=== PATIENT | female | born 1970 | race Caucasian/White ===

== ENCOUNTER 2019-12-06 03:27 | Emergency (ER) | payer OTHER, SELFPAY ==
--- NOTE | ~2019-12-06 | CT_ITS ---
EXAMINATION: CT abdomen pelvis wo con DATE: 12/06/2019 05:26 INDICATION: Left flank pain TECHNIQUE: Computed tomography (CT) of the abdomen and pelvis was performed without intravenous contr ast. Automated exposure control and iterative reconstruction technique were employed. The dose-length product was 1198.15 mGy-cm. COMPARISON: 01/21/2017 FINDINGS: Minimal dependent atelectasis in the lower lobes. Heart size is normal. No pericardial or pleural eff usion. Decreased density of the blood pool relative to the myocardium consistent with anemia. Postope rative change of prior gastric bypass procedure. Gradient of increasing density in the gallbladder co nsistent with layering sludge. Liver, spleen, pancreas and right adrenal gland are normal. Minimal ch janeth in a 1.8 cm low-attenuation left adrenal adenoma. There are 3 small stones in the left kidney an d larger 5 mm at least partially obstructing stone in the proximal left ureter with minimal left hydr onephrosis and mild periureteral stranding. Right kidney and ureter are normal with no hydronephrosis or right-sided urolithiasis. Appendix is normal. No bowel obstruction. Unchanged moderate sized fat- containing bladder is normal. The uterus is not identified and has likely been surgically resected. N o free intraperitoneal gas or fluid. Umbilical hernia. L5 spondylolysis with bilateral pars interarti cularis defects, 6 mm anterolisthesis on S1 and moderate to severe associated disc space loss at L5-S 1. IMPRESSION: 1. Left nephrolithiasis with at least partially obstructing 5 mm stone at the proximal left ureter. 2. Moderate-sized fat-containing umbilical hernia. 3. L5 spondylolysis. Reviewed, dictated and finalized at location A. IMPRESSION: 1. Left nephrolithiasis with at least partially obstructing 5 mm stone at the p roximal left ureter. 2. Moderate-sized fat-containing umbilical hernia. 3. L5 spondylolysis.
[2019-12-06 03:40] VITALS: BP 166/87; PULSE 68; RESP 18; TEMP 36.9; O2SAT 100
[2019-12-06 03:48] LABS: Add Urine Microscopic? YES; Appearance Urine Sl Cloudy (Clear); Bilirubin Urine Negative (Negative); Blood Urine 3+ (Negative); Color Urine Yellow (Yellow); Glucose Urine UA Negative (Negative); Ketones Urine Negative (Negative); Leukocyte Esterase Ur 1+ LEU/UL (Negative); Nitrate Urine Negative (Negative); Protein Urine Negative (Negative); Specific Grav Ur >= 1.030 (1.010-1.020); Urobilinogen Urine 0.2 mg/dL (0.2-1.0)
[2019-12-06 03:56] LABS: Bacteria Urine 1+ /hpf; Budding Yeast Urine Present /hpf; Squamous Epithelial Cell Urine Few /hpf (Few)
--- NOTE | 2019-12-06 03:59 | PC.NURSE ---
pt ambulated to bathroom , rate pain 10. fan in room per request
--- NOTE | 2019-12-06 04:02 | ED.BACK ---
HPI - Back Pain/Injury General Chief Complaint: Urogenital-Female Stated Complaint: Left Side Pain Time Seen by Provider: 12/06/19 04:03 Source: patient Mode of arrival: ambulatory Limitations: no limitations History of Present Illness HPI Narrative: 49-year-old woman comes in today complaining of left flank pain that has gotten worse over last day or so. She denies prior similar symptoms. She denies nausea, vomiting, diarrhea, fever, hematuria or dysuria. MD elicited complaint: back pain Onset (ago): day(s) (1) Severity: severe Similar Symptoms Previously: No Quality: sharp Location: left flank Radiation: none Exacerbating factors: none Relieving factors: none Related Data Allergies Allergy/AdvReac Type Severity Reaction Status Date / Time No Known Allergies Allergy Verified 03/01/19 15:10 Review of Systems Constitutional: Constitutional: Denies chills and Denies fever(s) ENT: Denies dysphagia, Denies nasal congestion and Denies sore throat Cardiovascular: Cardiovascular: Denies chest pain and Denies radiating jaw, neck or arm pain Respiratory: Respiratory: Denies cough, Denies dyspnea and Denies wheezing Gastrointestinal: Gastrointestinal: Denies abdominal pain, Denies diarrhea and Denies vomiting Genitourinary: Genitourinary: Denies hematuria, Denies nocturia and Denies dysuria Integumentary/Breasts: Skin/Breast: Denies pruritus, Denies erythema and Denies rash Neurologic: Denies vertigo, Denies dizziness, Denies syncope, Denies focal weakness and Denies numbness Hematologic/Lymphatic: Hematologic/Lymphatic: Denies easy bleeding and Denies easy bruising Allergic/Immunologic: Allergic/Immunologic: Denies lip swelling and Denies throat swelling PMF Past Medical History Medical History (Updated 12/06/19 @ 06:09 by Poncho Skinner MD) Condyloma Dyspareunia H/O reduction of nasal fracture age 14 Surgical History Surgical History (Updated 12/06/19 @ 05:05 by Poncho Skinner MD) H/O gastric bypass July 2017 History of dilation and curettage 1998, 2000 History of hysterectomy with left salpingo-oophorectomy History of right salpingo-oophorectomy Social History Social History Smoking status: Never smoker Alcohol intake: never Substance use: never Living arrangements: with family Gender identity (if verbalized by the patient): Female Exam Const: General: alert Nutritional Appearance: obese Orientation/consciousness: patient oriented x3 Limitations: no limitations Other: Moderate to severe acute distress. HENMT: Mouth: Yes moist mucous membranes Throat: posterior oropharynx normal Eyes: Conjunctivae: conjunctivae normal Pupils: Equal, round and reactive pupils present EOM: EOMs intact bilaterally Resp: Effort & Inspection: normal respiratory effort and not labored Auscultation: clear to auscultation bilaterally, no rales, no rhonchi and no wheezes Cardio: Rate: regular rate Rhythm: regular rhythm Heart sounds: no murmurs GI: Auscultation: normal bowel sounds Other: Nontender, nondistended. Left flank tenderness. Back/Spine/Pelvis: Back: CVA tenderness (mild) Skin: General skin exam: normal color, no jaundice and no pallor Rashes: no rashes Neuro: General: patient oriented x3, moves all extremities, no meningeal signs, no focal motor deficits and CN's II-XI intact bilaterally Speech: normal speech Extrem: General: normal to inspection and no clubbing, cyanosis or edema Psych: Appearance: grossly normal and well kempt Mental Status: mental status grossly normal Affect: Anxious affect present Attitude: cooperative Thought content: Yes Normal thought content present Course Vital Signs Vital signs: Vital Signs Temperature 36.9 C 12/06/19 03:40 Pulse Rate 68 12/06/19 03:40 Respiratory Rate 18 12/06/19 03:40 Blood Pressure 166/87 H 12/06/19 03:40 Pulse Oximetry 100 12/05
[2019-12-06] MEDS: HYDROmorphone HCL 2 MG/ML VIAL 0.5 MG IV PUSH (04:13)
[2019-12-06] MEDS: ONDANSETRON INJ 4 MG/2 ML VIAL IV PUSH (04:30)
[2019-12-06] MEDS: SODIUM CHLORIDE 0.9% IV 500 ML 999 ML IV CONT (04:30)
[2019-12-06 04:34] LABS: Hematocrit 29.1 % (35.0-49.0); Hemoglobin 8.4 g/dL (12.0-15.0); Mean Corpuscular HGB Conc 28.9 g/dL (32.0-36.0); Mean Corpuscular Hemoglobin 20.4 pg (27.0-31.0); Mean Corpuscular Volume 70.8 fL (78.0-102.0); Mean Platelet Volume 9.1 fl (9.2-11.8); Platelet Count Result 298 K/mm3 (150-420); Red Blood Count 4.11 M/mm3 (4.20-5.40); Red Cell Distribution Width 17.6 % (11.6-14.4); White Blood Count 12.6 K/mm3 (4.8-10.8)
[2019-12-06 04:46] LABS: Partial Thromboplastin Time 23.8 SEC (22.3-31.6)
[2019-12-06 04:49] LABS: Alanine Aminotransferase 24 U/L (14-59); Albumin Level 3.2 g/dL (3.4-5.0); Alkaline Phosphatase 84 U/L (46-116); Anion Gap 10 mmol/L (8-16); Aspartate Amino Transferase 23 U/L (15-37); Bilirubin,Total 0.3 mg/dL (0.00-1.00); Blood Urea Nitrogen 12 mg/dL (7-18); Calcium 8.4 mg/dL (8.5-10.1); Carbon Dioxide 26 mmol/L (21-32); Chloride 106 mmol/L (98-108); Estimated CRCL calculation 74 ml/min; Estimated Glomerular Filt Rate > 60; Glucose 109 mg/dL (70-99); Lipase 124 U/L (73-393); Osmolality Calculated 294 mOsm/kg (285-295); Potassium 3.1 mmol/L (3.5-5.1); Sodium 142 mmol/L (136-145); Total Protein 6.7 g/dL (6.4-8.2)
[2019-12-06 04:56] LABS: Band Neutrophils Percent 0 % (0-6); Basophils Percent Manual 0 % (0-1); Eosinophils Absolute Manual 0.25 K/mm3 (0.02-0.5); Eosinophils Percent Manual 2 % (1-6); Lymphocytes Absolute Manual 3.27 K/mm3 (1.1-4.5); Lymphocytes Percent Manual 26 % (18-44); Monocytes Absolute Manual 0.25 K/mm3 (0.1-0.90); Monocytes Percent Manual 2 % (3-9); Neutrophils Absolute Manual 8.82 K/mm3 (1.7-7.2); Neutrophils Percent Manual 70 % (46-73); Platelet Estimate Adequate (Adequate)
[2019-12-06 04:57] LABS: Smudge Cells PRESENT
[2019-12-06 05:58] VITALS: BP 132/76; PULSE 60; RESP 16; O2SAT 99
== END 2019-12-06 06:25 | disposition home or self-care (01) ==
PROVIDERS: Emergency Provider Emergency Medicine; PCP Family Medicine
DX: E87.6 Hypokalemia (principal); N20.1 Calculus of ureter
CPT/HCPCS: 36415; 74176; 80053; 81001; 83605; 83690; 85025; 85610; 85730; 87040; 87086; 87088; 96361; 96374; 96375; 99284; J1170; J1885; J2405; J7040

== ENCOUNTER 2019-12-13 19:25 | Observation (INO) | payer OTHER, SELFPAY ==
--- NOTE | ~2019-12-13 | XR_ITS ---
EXAMINATION: XR abdomen/kub 1V DATE: 12/13/2019 20:11 INDICATION: Lower left-sided flank pain. TECHNIQUE: A supine view of the abdomen on 2 radiographs was obtained. COMPARISON: CT dated 12/06/2019 FINDINGS: 4 x 3 mm stone at the left ureterovesicular junction. Suture lines in the epigastric region and left abdomen consistent with gastric bypass procedure. No dilated loops of gas-filled bowel to suggest obs truction. Mild lumbar dextroscoliosis. Osteitis pubis. IMPRESSION: 1. 4 x 3 mm stone at the left ureterovesicular junction. Reviewed, dictated and finalized at location A.
--- NOTE | ~2019-12-13 | XR_ITS ---
EXAMINATION: XR retrograde pyelo w/stent LT EXAM DATE: 12/14/2019 10:08 INDICATION: Left proximal ureteral stone. TECHNIQUE: Fluoroscopy used during XR retrograde pyelo w/stent LT performed by Dr. Dario estrada MD. The DAP for this procedure was 0.10 mGym2. FINDINGS: Difficult to identify the left proximal ureteral 5 mm stone. Left ureter was cannulated, i njected. Only minimal hydronephrosis. A left-sided double-J ureteral stent was placed. Correlate wit h procedure note. IMPRESSION: Fluoroscopy used during XR retrograde pyelo w/stent LT. Reviewed, dictated and finalized at location B.
[2019-12-13 19:27] VITALS: BP 151/70; PULSE 64; RESP 14; TEMP 36.5; O2SAT 100
[2019-12-13 19:52] LABS: Basophils Absolute Auto 0.1 K/mm3 (0.0-0.1); Basophils Percent Auto 0.4 % (0.2-1.2); Eosinophils Absolute Auto 0.2 K/mm3 (0-0.3); Eosinophils Percent Auto 1.2 % (0-4.4); Hematocrit 30.8 % (37.0-47.0); Immature Granulocyte Absolute 0.04 K/mm3 (0.00-0.031); Immature Granulocyte Percent A 0.2 % (0-0.5); Lymphocytes Absolute Auto 8.84 K/mm3 (0.9-3.2); Lymphocytes Percent Auto 54.1 % (18.3-44.2); Mean Corpuscular HGB Conc 29.2 g/dl (32-36); Mean Corpuscular Hemoglobin 20.4 pg (26-34); Mean Corpuscular Volume 69.7 fl (80-100); Mean Platelet Volume 9.7 fl (7.4-10.4); Monocytes Absolute Auto 0.8 K/mm3 (0.1-0.6); Monocytes Percent Auto 4.7 % (2.6-8.5); Neutrophils Absolute Auto 6.4 K/mm3 (1.3-6.7); Neutrophils Percent Auto 39.4 % (45.5-73.1); Platelet Count Result 365 k/mm3 (150-375); Red Blood Count 4.42 M/mm3 (4.2-5.4); White Blood Count 16.3 K/mm3 (4.5-10.0)
[2019-12-13 19:57] LABS: Add Urine Microscopic? YES; Appearance Urine Clear (Clear); Bilirubin Urine Negative (Negative); Blood Urine Negative (Negative); Color Urine Yellow (Yellow); Glucose Urine UA Negative (Negative); Ketones Urine Negative (Negative); Leukocyte Esterase Ur Trace LEU/UL (Negative); Mucus Urine Rare /lpf; Nitrate Urine Negative (Negative); Protein Urine Negative (Negative); Specific Grav Ur 1.019 (1.001-1.035); Squamous Epithelial Cell Urine Many /hpf (Few); Urobilinogen Urine Negative mg/dL (<2.0)
[2019-12-13] MEDS: MORPHINE SULFATE 4 MG/ML INJ IV PUSH ×2 (20:00→23:44)
[2019-12-13] MEDS: ONDANSETRON INJ 4 MG/2 ML VIAL IV PUSH (20:00)
[2019-12-13] MEDS: SODIUM CHLORIDE 0.9% IV 1,000 ML 999 ML IV CONT ×2 (20:00→21:29)
--- NOTE | 2019-12-13 20:00 | ED.ABDPAIN ---
HPI - Abdominal Pain General Chief Complaint: Urogenital-Female Stated Complaint: kidney stone Time Seen by Provider: 12/13/19 19:44 Source: RN notes reviewed History of Present Illness HPI narrative: Patient presents emergency department from home for left flank pain. Patient was seen at [facility] on 12/06/2019 diagnosed with a 5 mm proximal kidney stone on the left. Patient was discharged with hydrocodone Macrobid and Flomax which she has been taking. States the pain worsened this evening. States she took hydrocodone last 2 hours ago. Associated nausea and vomiting. Denies any fevers or chills chest pain shortness of breath or any other symptoms.. Pain is located left flank and does not radiate described as sharp and stabbing Related Data Allergies Allergy/AdvReac Type Severity Reaction Status Date / Time No Known Allergies Allergy Verified 12/13/19 21:59 Review of Systems Review of Systems: Narrative: Gen.: Denies fevers or chills ENT: Denies congestion Respiratory: Denies shortness of breath or cough CV: Denies chest pain or palpitations GI: See HPI denies burning, urgency, frequency or hematuria Musculoskeletal: Denies back pain or muscle pain Neuro: Denies numbness, tingling, weakness or focal weakness Skin: Denies rash Except as documented, all other systems reviewed and negative FOR[facility]LY [facility] Past Medical History Medical History Condyloma Dyspareunia H/O reduction of nasal fracture age 14 Surgical History Surgical History (Updated 12/06/19 @ 05:05 by Poncho Skinner MD) H/O gastric bypass July 2017 History of dilation and curettage 1998, 2000 History of hysterectomy with left salpingo-oophorectomy History of right salpingo-oophorectomy Social History Social History Smoking status: Never smoker Alcohol intake: never Substance use: never Gender identity (if verbalized by the patient): Female Exam Narrative: Exam Narrative: APPEARANCE: No acute distress, nontoxic, resting in bed EYES: EOMI HEENT: Normocephalic, atraumatic, OMM RESPIRATORY: No respiratory distress Clear to auscultation bilaterally with no rhonchi wheezing or rales. CARDIOVASCULAR: Regular rate and rhythm without murmurs rubs or gallops. ABDOMINAL: Soft, nontender, nondistended, no rebound or guarding MUSCULOSKELETAl: Moves all extremities. No clubbing, cyanosis or edema. NEURO: Awake and alert. Following commands, speech normal, no focal deficits SKIN:: Warm, dry. No rashes lesions or abrasions PSYCHIATRIC: Normal affect/mood, muscling tenderness Course Course Emergency Course: Reviewed old records including CT scans obtained at [facility] on December [address] De La Torre presentation work-up. Agrees with consult. Request patient remain n.p.o. with admission to hospitalist for pain control Discussed Dr. Santiago presentation work-up he agrees admission at this time Discussed with patient and family results of workup and diagnosis. Discussed need for admission. Patient and family understand and agree to current treatment plan Vital Signs Vital signs: Vital Signs Temperature 97.7 F 12/13/19 19:27 Pulse Rate 64 12/13/19 19:27 Respiratory Rate 14 12/13/19 19:27 Blood Pressure 151/70 H 12/13/19 19:27 Pulse Oximetry 100 12/13/19 19:27 Temperature 97.7 F 12/13/19 19:27 Pulse Rate 75 12/13/19 22:38 Respiratory Rate 18 12/13/19 22:38 Blood Pressure 139/71 12/13/19 22:38 Pulse Oximetry 100 12/13/19 22:38 MDM - Abdominal Pain Lab Data Result diagrams: 12/13/19 19:46 12/13/19 19:46 Labs: Lab Results 12/13/19 12/13/19 12/13/19 Range/Units 19:46 19:46 19:46 WBC 16.3 H (4.5-10.0) K/mm3 RBC 4.42 (4.2-5.4) M/mm3 Hgb 9.0 L (12.0-15.0) g/dL Hct 30.8 L (37.0-47.0) % MCV 69.7 L (80-100) fl MCH 20.4 L
[2019-12-13 20:02] LABS: Hypochromasia 1+ (NORMAL); Platelet Estimate Adequate (Adequate)
[2019-12-13 20:04] LABS: Anion Gap 8 mmol/L (8-16); Blood Urea Nitrogen 15 mg/dL (7-17); Calcium 8.9 mg/dL (8.4-10.2); Carbon Dioxide 27 mmol/L (22-30); Chloride 103 mmol/L (98-107); Estimated CRCL calculation 79 ml/min; Estimated Glomerular Filt Rate > 60; Glucose 116 mg/dL (65-105); Potassium 3.7 mmol/L (3.4-5.0); Sodium 138 mmol/L (137-145)
[2019-12-13 21:19] VITALS: BP 154/82; PULSE 69; RESP 18; O2SAT 100
[2019-12-13 21:19] LABS: Lactic Acid Reflex 2.8 mmol/L (0.7-2.1)
--- NOTE | 2019-12-13 21:53 | PC.NURSE ---
pt states pain decreased to a 4 with Dilaudid administration, states pain is back up to an 8. pt milind hughes MD updated on pt status.
[2019-12-13] MEDS: KETOROLAC 30 MG/ML VIAL (*BKC) IV PUSH (21:55)
--- NOTE | 2019-12-13 22:07 | PC.NURSE ---
pt appears more comfortable at this time. pt resting on stretcher in NAD, RR even and unlabored. pt rates pain 4/10.
[2019-12-13 22:38] VITALS: BP 139/71; PULSE 75; RESP 18; O2SAT 100
[2019-12-13 23:26] VITALS: PULSE 84; RESP 16; O2SAT 100
--- NOTE | 2019-12-13 23:35 | ADMGEN ---
This patient, Rachael Nielsen, was admitted to 2 Medical Room 242-. Patient/family oriented to hospital policies and general routines including ID bracelet, bed and alarms, visiting hours, pain management, procedures, bathroom and other care routines, personal items, smoking policy, room service/diet, and visiting hours. Valuables list has been completed. Information on how to activate the Rapid Response Team has been discussed. Patient/Family are encouraged to report perceived risks to care and to ask questions if they do not understand what they are told or what they should do.
[2019-12-13] MEDS: LACTATED RINGERS 1,000 ML 150 ML IV CONT (23:44)
[2019-12-14] VITALS (11 sets, daily range): BP systolic 99–142; BP diastolic 52–76; PULSE 51–68; RESP 10–18; TEMP 36.1–37.1; O2SAT 93–100; BMI 38.7
[2019-12-14 00:03] LABS: Reflex Lactic Acid Yes or No Add Lactic
[2019-12-14 00:56] LABS: Lactic Acid 1.4 mmol/L (0.7-2.1)
[2019-12-14 05:13] LABS: Basophils Percent Auto 0.3 % (0.2-1.2); Eosinophils Percent Auto 0.2 % (0-4.4); Hemoglobin 8.1 g/dL (12.0-15.0); Immature Granulocyte Absolute 0.04 K/mm3 (0.00-0.031); Immature Granulocyte Percent A 0.3 % (0-0.5); Lymphocytes Absolute Auto 5.41 K/mm3 (0.9-3.2); Lymphocytes Percent Auto 40.2 % (18.3-44.2); Mean Corpuscular HGB Conc 28.9 g/dl (32-36); Mean Corpuscular Hemoglobin 20.1 pg (26-34); Mean Corpuscular Volume 69.7 fl (80-100); Mean Platelet Volume 9.8 fl (7.4-10.4); Monocytes Absolute Auto 0.9 K/mm3 (0.1-0.6); Monocytes Percent Auto 6.7 % (2.6-8.5); Neutrophils Absolute Auto 7.1 K/mm3 (1.3-6.7); Neutrophils Percent Auto 52.3 % (45.5-73.1); Platelet Count Result 311 k/mm3 (150-375); Red Blood Count 4.02 M/mm3 (4.2-5.4); White Blood Count 13.5 K/mm3 (4.5-10.0)
[2019-12-14 05:28] LABS: Anion Gap 6 mmol/L (8-16); Blood Urea Nitrogen 11 mg/dL (7-17); Calcium 8.6 mg/dL (8.4-10.2); Carbon Dioxide 27 mmol/L (22-30); Chloride 105 mmol/L (98-107); Estimated CRCL calculation 93 ml/min; Estimated Glomerular Filt Rate > 60; Glucose 100 mg/dL (65-105); Potassium 4.1 mmol/L (3.4-5.0); Sodium 138 mmol/L (137-145)
[2019-12-14 06:13] LABS: Anisocytosis 1+ (NORMAL); Hypochromasia 1+ (NORMAL); Platelet Estimate Adequate (Adequate)
[2019-12-14] MEDS: LACTATED RINGERS 1,000 ML 150 ML IV CONT ×2 (06:16→11:30)
--- NOTE | 2019-12-14 08:17 | PM.SD ---
Same Day Admit/Disch: HPI History of Present Illness Chief complaint: Sepsis, UTI, left kidney stone Narrative: Rachael Nielsen is a 49 year old female with no history of kidney stones who presented to an outside area hospital for extreme left flank pain. The patient stated a week prior she had this pain that was more mild and went to the hospital and received tamsulosin and pain medication and was sent home. She did fine for about a week and then suddenly yesterday she started having sharp 10/10 left flank pain. She said this pain was constantly a 5/10 and would intermittently increased to 9/10. She did not have any dysuria or blood in her urine that she noticed. She had some nausea that was associated with the pain but no vomiting. She denies fevers, chills, chest pain, shortness of breath, COVID-19 like symptoms, leg swelling, vomiting, diarrhea, constipation, rashes or wounds. She has never had any severe reaction to anesthesia. Her pain currently is a 2/10 and she has not passed the stone that she has noted. She is on estrogen due to having a bilateral oophorectomy. No history of blood clots. She takes no supplements after having her gastric bypass. [facility] Past Medical History Medical History Condyloma Dyspareunia H/O reduction of nasal fracture age 14 Surgical History Surgical History H/O gastric bypass July 2017 History of dilation and curettage 1998, 2000 History of hysterectomy with left salpingo-oophorectomy History of right salpingo-oophorectomy Family History Family History Father Prostate carcinoma Mother Uterine cancer Social History Social History Social History: Patient drinks 1 alcoholic beverage a month. She has never smoked marijuana, cigarettes, and does not do drugs. 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 If she is unable to make decisions for herself she appoints her father Desmond Chapman to do so for her. Smoking status: Never smoker Alcohol intake: current Substance use: never Substance use type: does not use Gender identity (if verbalized by the patient): Female Spiritual care concerns: No Same Day Admit/Disch: Med Pre-admit Medications Home Medications Medication Instructions Recorded Confirmed Type hydrocodone-acetaminophen [[place]] 1 tablet PO Q6H PRN #20 tablet 12/06/19 12/14/19 Rx ondansetron 4 mg PO Q6H PRN #10 tablet 12/06/19 12/14/19 Rx estradiol 0.05 mg TRANSDERMAL WEEKLY 12/14/19 12/14/19 History ferrous sulfate 324 mg PO DAILY #30 tablet 12/14/19 Rx mecobalamin (vitamin B12) 1,000 mcg SUBLINGUAL DAILY #30 12/14/19 Rx tablet oxybutynin chloride 5 mg PO BID PRN #30 tablet 12/14/19 Rx sulfamethoxazole-trimethoprim 1 tablet PO Q12H #10 tablet 12/14/19 Rx [Bactrim DS] Exam Narrative: Exam Narrative: General:Well developed well nourished patient HEENT: Normocephalic, atraumatic, PERRL, Sclerae anicteric, oral mucosa moist. Neck: Supple Resp: CTA Heart: RRR with no murmurs Abd: Soft, nontender. No pain to palpation. Positive bowel sounds. No flank or umbilical ecchymosis Back: Flank pain to the left back Skin: Warm and dry Extremities: No swelling, erythema or pain to palpation Neuro: Alert and Oriented x4 . CN 2-12 intact. No focal neurological deficits. DS: Data Data Completed and Pending Labs on day of discharge: Labs from last 24 hours 12/14/19 12/14/19 12/14/19 04:51 04:50 00:36 WBC 13.5 H RBC 4.02 L Hgb 8.1 L Hct 28.0 L MCV 69.7 L MCH 20.1 L MCHC 28.9 L RDW 18.0 H Plt Count 311 MPV 9.8 Immature Gran % (Auto) 0.3 Neut % (Auto) 52.3 Lymph % (Auto) 40.2 [place] % (Auto) 6.7 Eos % (Auto) 0.2 Baso % (Auto) 0.3 Lymph # (Auto) 5.41 H [place] # (Auto)
--- NOTE | 2019-12-14 08:35 | PC.NURSE ---
To OR via stretcher with OR staff. Report to Nubia Gottlieb RN. Consent to be obtained in preop area.
--- NOTE | 2019-12-14 08:40 | WPDURCON ---
Assessment and Plan Assessment and plan (1) Ureteral calculus, left: Code(s): N20.1 - Calculus of ureter Status: Acute Assessment and Plan: Plan to go to the OR this morning: Cystoscopy, left ureteroscopy with stone extraction, possible left ureteral stent, retrograde pyelogram, possible holmium laser. Obtain consent. Keep NPO Urology Consult Note HPI Date Seen: 12/14/19 Requesting Physician: Elizabeth Larkin PA-C Primary Care Provider: Tenzin Blair DO Consult Narrative Narrative: Rachael Nielsen is a 49 year old female who presented to [facility] on 12/06/2019 for left flank pain and was diagnosed with a 5mm left UPJ stone via CT scan abdomen/pelvis. She was discharged home with pain medications and attempted to pass the stone, however last night she had acute onset of worsening left flank pain that was unbearable. She denies radiating pain to the abdomen, dysuria, hematuria, fever, chills, nausea or vomiting. Her WBC is slightly elevated today at 13.5, creatinine is 0.70 and KUB shows movement to the left UVJ. She continues to be in pain today. Review of Systems Cardiovascular: Cardiovascular: Reports no additional cardiovascular complaints Respiratory: Respiratory: Reports no additional respiratory complaints Gastrointestinal: Gastrointestinal: Denies abdominal pain, Denies nausea and Denies vomiting Genitourinary: Genitourinary: Denies hematuria, Denies dysuria, Denies pelvic pain, Reports flank pain and Denies urinary urgency PMFSH Past Medical History Medical History Condyloma Dyspareunia H/O reduction of nasal fracture age 14 Surgical History Surgical History H/O gastric bypass July 2017 History of dilation and curettage 1998, 2000 History of hysterectomy with left salpingo-oophorectomy History of right salpingo-oophorectomy Family History Family History Father Prostate carcinoma Mother Uterine cancer Social History Social History (Updated 12/14/19 @ 08:24 by Elizabeth Larkin PA-C) Social History: Patient drinks 1 alcoholic beverage a month. She has never smoked marijuana, cigarettes, and does not do drugs. 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 If she is unable to make decisions for herself she appoints her father Desmond Chapman to do so for her. Smoking status: Never smoker Alcohol intake: current Substance use: never Substance use type: does not use Gender identity (if verbalized by the patient): Female Spiritual care concerns: No Meds Home Medications and Allergies Home Medications Medication Instructions Recorded Confirmed Type hydrocodone-acetaminophen [[place]] 1 tablet PO Q6H PRN #20 tablet 12/06/19 12/14/19 Rx nitrofurantoin monohyd/m-cryst 100 mg PO Q12H 7 Days #14 cap 12/06/19 12/14/19 Rx [Macrobid] ondansetron 4 mg PO Q6H PRN #10 tablet 12/06/19 12/14/19 Rx tamsulosin 0.4 mg PO HS #10 cap 12/06/19 12/14/19 Rx estradiol 0.05 mg TRANSDERMAL WEEKLY 12/14/19 12/14/19 History Allergies Allergy/AdvReac Type Severity Reaction Status Date / Time No Known Allergies Allergy Verified 12/13/19 21:59 Vital Signs Vital Signs - 24 hr 12/13/19 19:27 12/13/19 21:19 12/13/19 22:38 Temperature 97.7 F Pulse Rate 64 69 75 Respiratory Rate 14 18 18 Blood Pressure 151/70 H 154/82 H 139/71 Pulse Oximetry 100 100 100 12/13/19 23:26 12/14/19 00:08 12/14/19 05:08 Temperature 97.2 F L 97.4 F L Pulse Rate 84 68 59 L Respiratory Rate 16 16 16 Blood Pressure 142/76 H 134/64 Pulse Oximetry 100 100 98 Exam Resp: Effort & Inspection: normal respiratory effort Cardio: Rate: regular rate GI: GI Palp: Yes Soft to palpation and No Tenderness to palpation present (GI) : General: Yes CVA tenderness on the left Extrem: General: no edema Results Lab
[2019-12-14] MEDS: LACTATED RINGERS 1,000 ML 30 ML IV CONT (09:00)
--- NOTE | 2019-12-14 09:09 | WPDANESEPPF ---
Anes - Initial Pre Proc Eval Procedure: Operation Date: 12/14/19 09:30 Proposed Procedures p CYSTOSCOPY,LEFT URETEROSCOPY,LEFT RETROGRADE PYELOGRAM,LEFT STONE EXTRACTION,POSSIBLE HOLMIUM LASER,POSSIBLE STENT PLACEMENT - Dario Stallworth MD Date/Time: 12/14/19 09:09 Surgeon: Elizabeth Larkin PA-C Pre Op Diagnosis: Sepsis, UTI, left kidney stone Patient Data Age: 49 Gender: F Height: 5 ft 2 in Weight: 96 kg Last Vital Signs Temp 36.3 C L 12/14/19 05:08 Pulse 59 L 12/14/19 05:08 Resp 16 12/14/19 05:08 BP 134/64 12/14/19 05:08 Pulse Ox 98 12/14/19 05:08 Allergies Allergy/AdvReac Type Severity Reaction Status Date / Time No Known Allergies Allergy Verified 12/13/19 21:59 Home Medications Medication Instructions Recorded Confirmed Type hydrocodone-acetaminophen [[place]] 1 tablet PO Q6H PRN #20 tablet 12/06/19 12/14/19 Rx nitrofurantoin monohyd/m-cryst 100 mg PO Q12H 7 Days #14 cap 12/06/19 12/14/19 Rx [Macrobid] ondansetron 4 mg PO Q6H PRN #10 tablet 12/06/19 12/14/19 Rx tamsulosin 0.4 mg PO HS #10 cap 12/06/19 12/14/19 Rx estradiol 0.05 mg TRANSDERMAL WEEKLY 12/14/19 12/14/19 History Laboratory Tests 12/13/19 12/13/19 12/13/19 19:46 19:46 19:46 WBC 16.3 K/mm3 H K/mm3 (4.5-10.0) RBC 4.42 M/mm3 M/mm3 (4.2-5.4) Hgb 9.0 g/dL L g/dL (12.0-15.0) Hct 30.8 % L % (37.0-47.0) MCV 69.7 fl L fl (80-100) MCH 20.4 pg L pg (26-34) MCHC 29.2 g/dl L g/dl (32-36) RDW 18.0 % H % (11.5-14.5) Plt Count 365 k/mm3 k/mm3 (150-375) MPV 9.7 fl fl (7.4-10.4) Immature Gran % (Auto) 0.2 % % (0-0.5) Neut % (Auto) 39.4 % L % (45.5-73.1) Lymph % (Auto) 54.1 % H % (18.3-44.2) [place] % (Auto) 4.7 % % (2.6-8.5) Eos % (Auto) 1.2 % % (0-4.4) Baso % (Auto) 0.4 % % (0.2-1.2) Lymph # (Auto) 8.84 K/mm3 H K/mm3 (0.9-3.2) [place] # (Auto) 0.8 K/mm3 H K/mm3 (0.1-0.6) Eos # (Auto) 0.2 K/mm3 K/mm3 (0-0.3) Baso # (Auto) 0.1 K/mm3 K/mm3 (0.0-0.1) Abs Immat Gran (auto) 0.04 K/mm3 H K/mm3 (0.00-0.031) Absolute Neuts (auto) 6.4 K/mm3 K/mm3 (1.3-6.7) Absolute Nucleated RBC 0.0 K/mm3 K/mm3 (0.0-0.012) Nucleated RBC % 0.0 % % (0.0-0.2) Platelet Estimate Adequate (Adequate) Hypochromasia 1+ (NORMAL) Anisocytosis Sodium 138 mmol/L mmol/L (137-145) Potassium 3.7 mmol/L mmol/L (3.4-5.0) Chloride 103 mmol/L mmol/L (98-107) Carbon Dioxide 27 mmol/L mmol/L (22-30) Anion Gap 8 mmol/L mmol/L (8-16) BUN 15 mg/dL mg/dL (7-17) Creatinine 0.80 mg/dL mg/dL (0.7-1.0) Estim Creat Clear Calc 79 ml/min ml/min Estimated GFR > 60 (59 - ) Glucose 116 mg/dL H mg/dL (65-105) Lactic Acid Calcium 8.9 mg/dL mg/dL (8.4-10.2) Urine Color Yellow (Yellow) Urine Appearance Clear (Clear) Urine pH 7.0 (5.0-9.0) Ur Specific [place] 1.019 (1.001-1.035) Urine Protein Negative mg/dL mg/dL (Negative) Urine Glucose (UA) Negative mg/dL mg/dL (Negative) Urine Ketones Negative mg/dL mg/dL (Negative) Ur Blood (Man) Negative (Negative) Urine Nitrate Negative (Negative) Urine Bilirubin Negative (Negative) Urine Urobilinogen Negative mg/dL mg/dL (<2.0) Leukocyte Esterase Rfl Trace GERRI/UL H GERRI/UL (Negative) Urine RBC 3-5 /hpf H /hpf (0-2) Urine WBC 7-9 /hpf H /hpf Ur Squamous Epith Cells Many /hpf H /hpf (Few) Hyaline Casts 1-2 /lpf /lpf (None) Urine Mucus Rare /lpf /lpf 12/13/19 12/14/19 12/14/19 20:55 00:36
[2019-12-14] MEDS: SCOPOLAMINE 1.5 MG PATCH TRANSDERM (09:25)
--- NOTE | 2019-12-14 09:43 | SUR.PREOP ---
PT STATES SHE DOES NOT WANT HER CALLED UNTIL SHE IS LEAVING RECOVERY
[2019-12-14] MEDS: KETOROLAC 30 MG/ML VIAL (*BKC) IV PUSH (09:55)
--- NOTE | 2019-12-14 10:02 | P.OP_ITS ---
Procedure Note - Detailed Date of procedure: 12/14/19 Pre-op diagnosis: Sepsis, UTI, left kidney stone Left ureteral calculus 5 mm Post-op diagnosis: same Procedure performed: cystoscopy, left retrograde pyelogram, left ureteroscopy with stone extraction, left ureteral stent placement 4.8 [place] contour Description of procedure: patient is taken to the operative suite correctly identified. Once anesthesia was obtained she was placed in the dorsal lithotomy position and prepped and draped in usual sterile fashion. Twenty-two [place] scope was inserted in the bladder. There is no tumors noted. Left ureteral o rifice was cannulated with a guidewire. The orifice was dilated using an 8/10 dilator. A rigid ureteral scope was then inserted the stone was visualized. Using an escape basket the stone was grasped and retrieved in its entirety. Reinspection of the ureter reveals no residual stones. Pyelogram was then performed to confirm placement of the stent. A 4.8 contour stent was then placed with the proximal end coiled in the renal pelvis and the distal in the bladder. Bladder was drained. 2% viscous lidocaine was inserted urethra. Patient is taken recovery room stable condition. If patient does well postoperatively she can be discharged home with follow-up in a week's time for stent removal. Anesthesia: GLMA Surgeon: Dario Stallworth MD Drains: Yes Packing: No Pathology: yes Complications: No immediate complications Condition: stable Disposition: PACU
--- NOTE | 2019-12-14 11:35 | PC.NURSE ---
Received patient from OR via stretcher with OR staff. Patient settled into room. Denies pain or distress.
[2019-12-14 13:09] LABS: Hematocrit 29.6 % (37.0-47.0); Hemoglobin 8.4 g/dL (12.0-15.0); Mean Corpuscular HGB Conc 28.4 g/dl (32-36); Mean Corpuscular Hemoglobin 19.8 pg (26-34); Mean Corpuscular Volume 69.6 fl (80-100); Mean Platelet Volume 9.6 fl (7.4-10.4); Platelet Count Result 286 k/mm3 (150-375); Red Blood Count 4.25 M/mm3 (4.2-5.4); White Blood Count 12.5 K/mm3 (4.5-10.0)
[2019-12-14 13:25] LABS: Transferrin 317 mg/dL (206-381)
[2019-12-14 13:40] LABS: Iron 27 ug/dL (37-170)
[2019-12-14 13:49] LABS: Percent Iron Saturation 6 % (20-50)
[2019-12-14 14:12] LABS: Thyroid Stimulating Hormone Reflex 0.793 uIU/mL (0.465-4.68)
[2019-12-14] MEDS: OXYBUTYNIN CHLORIDE 5 MG TABLET PO (14:12)
[2019-12-14 14:16] LABS: Ferritin 4.07 ng/mL (6.24-137)
[2019-12-14 14:24] LABS: Folic Acid 9.2 ng/mL (2.76->20)
--- NOTE | 2019-12-17 08:00 | PC.NURSE ---
Urine cx- multiple organisms each <10,000. Commonly found on external and internal genitalia and are considered to be colonizers.
--- NOTE | 2019-12-25 12:27 | PC.NURSE ---
Blood cx are negative.
== END 2019-12-14 16:00 | disposition home or self-care (01) ==
LOC: ANHED 23:07 → ANH2MED 23:09
PROVIDERS: Physician Assistant; Urology; Admitting Provider Internal Medicine; Emergency Provider Emergency Medicine; PCP Family Medicine; Visit Provider Family Medicine
PROC: (CPT 52352; principal; 2019-12-14 09:30)
DX: N20.1 Calculus of ureter (principal); N20.0 Calculus of kidney; N39.0 Urinary tract infection, site not specified; D72.829 Elevated white blood cell count, unspecified; D50.9 Iron deficiency anemia, unspecified; E53.8 Deficiency of other specified B group vitamins; Z98.84 Bariatric surgery status; E66.9 Obesity, unspecified; Z68.38 Body mass index [BMI] 38.0-38.9, adult
CPT/HCPCS: 52356; 36415; 74018; 74420; 80048; 81001; 82365; 82607; 82728; 82746; 83540; 83550; 83605; 84443; 84466; 85025; 85027; 87040; 87086; 87088; 88300; 96360; 96361; 96365; 96367; 96375; 96376; 99285; A9270; C1769; C2617; G0378; J0131; J0696; J1100; J1170; J1885; J2250; J2270; J2405; J2704; J3010; J7030; J7120; Q9966

== ENCOUNTER 2020-03-28 07:47 | Outpatient (CLI) | payer OTHER, SELFPAY ==
[2020-03-29 12:35] LABS: SARS-CoV-2 RNA PCR Negative
== END 2020-03-28 07:48 | disposition home or self-care (01) ==
LOC: CHSLAB 07:51
PROVIDERS: PCP Family Medicine; Visit Provider Nurse Practitioner Family
DX: Z20.828 Contact with and (suspected) exposure to other viral communicable diseases (principal)
CPT/HCPCS: 87635; C9803; U0003

== ENCOUNTER 2023-03-24 08:47 | Outpatient (CLI) | payer BC, SELFPAY ==
[2023-03-24 09:04] LABS: Hematocrit 24.5 % (35.0-49.0); Mean Corpuscular HGB Conc 25.3 g/dL (32.0-36.0); Mean Corpuscular Hemoglobin 15.6 pg (27.0-31.0); Mean Corpuscular Volume 61.6 fL (78.0-102.0); Mean Platelet Volume 9.4 fl (9.2-11.8); Platelet Count Result 326 K/mm3 (150-420); Red Blood Count 3.98 M/mm3 (4.20-5.40); Red Cell Distribution Width 20.4 % (11.6-14.4); White Blood Count 11.7 K/mm3 (4.8-10.8)
[2023-03-24 09:22] LABS: Hemoglobin 6.2 g/dL (12.0-15.0)
[2023-03-24 09:27] LABS: Band Neutrophils Percent 0 % (0-6); Basophils Absolute Manual 0.23 K/mm3 (0-0.1); Basophils Percent Manual 2 % (0-1); Eosinophils Absolute Manual 0.46 K/mm3 (0.02-0.5); Eosinophils Percent Manual 4 % (1-6); Lymphocytes Absolute Manual 3.74 K/mm3 (1.1-4.5); Lymphocytes Percent Manual 32 % (18-44); Monocytes Percent Manual 6 % (3-9); Neutrophils Absolute Manual 6.55 K/mm3 (1.7-7.2); Neutrophils Percent Manual 56 % (46-73); Platelet Estimate Adequate (Adequate); Total Cells Counted 100
[2023-03-24 09:36] LABS: Alanine Aminotransferase 18 U/L (14-59); Albumin Level 3.6 g/dL (3.4-5.0); Alkaline Phosphatase 88 U/L (46-116); Anion Gap 7 mmol/L (8-16); Aspartate Amino Transferase 14 U/L (15-37); Bilirubin,Total 0.3 mg/dL (0.00-1.00); Blood Urea Nitrogen 11 mg/dL (7-18); Calcium 8.4 mg/dL (8.5-10.1); Carbon Dioxide 30 mmol/L (21-32); Chloride 108 mmol/L (98-108); Cholesterol 127 mg/dL (0-200); Estimated Glomerular Filt Rate > 60; Ferritin 3 ng/mL (8-252); Glucose 93 mg/dL (70-99); HDL Direct 65 mg/dL (40-60); Iron 10 ug/dL (50-170); LDL Cholesterol Calculated 51 mg/dL (<130); Osmolality Calculated 299 mOsm/kg (285-295); Percent Iron Saturation 2 % (12-57); Potassium 3.8 mmol/L (3.5-5.1); Sodium 145 mmol/L (136-145); Total Protein 6.4 g/dL (6.4-8.2); Triglycerides 53 mg/dL (0-150)
[2023-03-24 10:24] LABS: Hemoglobin A1C < 4.7 % (<5.7)
== END 2023-03-24 08:48 | disposition home or self-care (01) ==
LOC: CHSLAB 08:49
PROVIDERS: PCP Family Medicine; Visit Provider Family Medicine
DX: K43.9 Ventral hernia without obstruction or gangrene (principal); E11.9 Type 2 diabetes mellitus without complications; D64.9 Anemia, unspecified; D50.9 Iron deficiency anemia, unspecified; D72.829 Elevated white blood cell count, unspecified
CPT/HCPCS: 36415; 80053; 80061; 82728; 83036; 83540; 83550; 85025

== ENCOUNTER 2023-03-24 10:02 | Emergency (ER) | payer BC, SELFPAY ==
[2023-03-24 10:02] VITALS: BP 133/68; PULSE 74; RESP 18; TEMP 36.5; O2SAT 98
--- NOTE | 2023-03-24 10:13 | ECG_ITS ---
Measurements Intervals [place] Rate: 75 P: 57 MO: 161 QRS: -1 QRSD: 110 T: 25 QT: 411 QTc: 459 Interpretive Statements SINUS RHYTHM INCOMPLETE RIGHT BUNDLE BRANCH BLOCK BORDERLINE R WAVE PROGRESSION, ANTERIOR LEADS BASELINE ARTIFACT- I, II, III, V4 BORDERLINE ECG NO PREVIOUS ECG AVAILABLE FOR COMPARISON Electronically Signed On 03-24-2023 10:32:37 LATHE SET UP OPERATOR by Sameer Jolly D.O.
--- NOTE | 2023-03-24 10:25 | ED.RECABL ---
HPI - Recheck/Abnormal Lab/Rx General Chief Complaint: Recheck/Abnormal Lab/Rx Stated Complaint: abnormal labs Time Seen by Provider: 03/24/23 10:13 Source: patient Mode of arrival: ambulatory Limitations: no limitations History of Present Illness HPI narrative: this is a 52-year-old female that presents from her primary physician's office with some blood work that showed that she hemoglobin of 6.2, patient does have a history of iron deficiency anemia and B-cell lymphocytosis is followed by Hematology-Oncology at [facility] and was in the process of getting a iron infusion set up as an outpatient. Patient after seeing her primary that is she establish care with today and having some blood work performed was concerned of a low hemoglobin. The patient is asymptomatic with no shortness for breath no chest pain no bleeding episodes appears comfortable vitals are stable no abdominal pain no nausea vomiting no diarrhea constipation no dysuria. Patient has no fever chills, patient does have a history of gastric bypass surgery. Related Data Allergies Allergy/AdvReac Type Severity Reaction Status Date / Time No Known Allergies Allergy Verified 03/24/23 07:31 Review of Systems Review of Systems: All systems reviewed & are unremarkable except as noted in HPI and below PMFSH Past Medical History Medical History (Updated 03/24/23 @ 11:03 by Denny Castro MD) Condyloma Dyspareunia H/O reduction of nasal fracture age 14 Surgical History Surgical History H/O gastric bypass July 2017 History of dilation and curettage 1998, 2000 History of hysterectomy with left salpingo-oophorectomy History of right salpingo-oophorectomy Family History Family History Father Prostate carcinoma Mother Uterine cancer Social History Social History Social History: Patient drinks 1 alcoholic beverage a month. She has never smoked marijuana, cigarettes, and does not do drugs. 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 If she is unable to make decisions for herself she appoints her father Desmond Chapman to do so for her. Smoking status: Never smoker Alcohol intake: current Substance use: never Substance use type: does not use Living arrangements: with family Gender identity (if verbalized by the patient): Female Spiritual care concerns: No Exam Const: General: healthy appearing Nutritional Appearance: well nourished Orientation/consciousness: patient oriented x3 Limitations: no limitations HENMT: Head: normal to inspection Chest: Chest palpation & inspection: normal inspection of the chest Resp: Effort & Inspection: normal respiratory effort Auscultation: clear to auscultation bilaterally Cardio: Rate: regular rate Rhythm: regular rhythm GI: GI Palp: Yes Soft to palpation Auscultation: normal bowel sounds : General: Yes bladder normal to palpation Back/Spine/Pelvis: Back: no CVA tenderness Skin: General skin exam: normal color Rashes: no rashes Wounds: no wounds Neuro: General: patient oriented x3 and moves all extremities Psych: Mental Status: mental status grossly normal Affect: normal affect Course Course Emergency Course: Patient H&H performed and with some H&H values of 6.2 and 24, patient asymptomatic vitals are stable has a history of iron deficiency and is process of getting iron infusion set up as an outpatient basis. Patient was sent over by her primary for low H&H, IV was started and patient was typed and crossed and will infuse 1unit of packed red blood cells. EKG performed shows incomplete right bundle branch block otherwise no ST or T changes. Vital Signs Vital signs: Vital Signs Temperature 36.5 C 03/24/23 10:02 Pulse Rate 74 03/24/23 10:02 Respiratory Rate 18 03/24/23 10:02 Blood Pressure 133
[2023-03-24 10:27] LABS: Basophils Absolute Auto 0.05 K/mm3 (0.00-0.10); Basophils Percent Auto 0.5 % (0.0-1.0); Eosinophils Absolute Auto 0.12 K/mm3 (0.02-0.50); Eosinophils Percent Auto 1.1 % (1.0-6.0); Hematocrit 25.3 % (35.0-49.0); Immature Granulocyte Absolute 0.03 K/mm3 (0.00-0.00); Immature Granulocyte Percent A 0.3 % (0.0-0.0); Lymphocytes Absolute Auto 5.13 K/mm3 (1.10-4.50); Mean Corpuscular HGB Conc 24.9 g/dL (32.0-36.0); Mean Corpuscular Hemoglobin 15.4 pg (27.0-31.0); Mean Platelet Volume 10.2 fl (9.2-11.8); Monocytes Percent Auto 4.6 % (2.0-11.0); Neutrophils Absolute Auto 5.1 K/mm3 (1.7-7.2); Neutrophils Percent Auto 46.5 % (50.0-70.0); Platelet Count Result 347 K/mm3 (150-420); Red Blood Count 4.08 M/mm3 (4.20-5.40); Red Cell Distribution Width 20.7 % (11.6-14.4); White Blood Count 10.9 K/mm3 (4.8-10.8)
[2023-03-24 10:30] LABS: Hemoglobin 6.3 g/dL (12.0-15.0)
[2023-03-24 10:43] LABS: Alanine Aminotransferase 19 U/L (14-59); Albumin Level 3.5 g/dL (3.4-5.0); Alkaline Phosphatase 87 U/L (46-116); Anion Gap 9 mmol/L (8-16); Aspartate Amino Transferase 14 U/L (15-37); Bilirubin,Total 0.3 mg/dL (0.00-1.00); Blood Urea Nitrogen 11 mg/dL (7-18); Calcium 8.4 mg/dL (8.5-10.1); Carbon Dioxide 29 mmol/L (21-32); Chloride 106 mmol/L (98-108); Estimated CRCL calculation 99 ml/min; Estimated Glomerular Filt Rate > 60; Glucose 128 mg/dL (70-99); Osmolality Calculated 299 mOsm/kg (285-295); Potassium 3.2 mmol/L (3.5-5.1); Sodium 144 mmol/L (136-145); Total Protein 6.7 g/dL (6.4-8.2)
[2023-03-24 10:58] VITALS: BP 123/65; PULSE 75; RESP 20; TEMP 36.7; O2SAT 99
[2023-03-24 11:14] VITALS: BP 118/59; PULSE 61; RESP 20; TEMP 36.7; O2SAT 98
[2023-03-24 12:14] VITALS: BP 120/66; PULSE 70; RESP 20; TEMP 36.7; O2SAT 99
[2023-03-24] MEDS: POTASSIUM BICARBONATE 25 MEQ TABEF 50 MEQ PO (12:29)
[2023-03-24] MEDS: SODIUM CHLORIDE 0.9% IV 500 ML 999 ML IV CONT (12:33)
[2023-03-24 13:00] VITALS: BP 122/70; PULSE 64; RESP 20; TEMP 36.7; O2SAT 97
== END 2023-03-24 13:17 | disposition home or self-care (01) ==
PROVIDERS: Emergency Provider Emergency Medicine; PCP Family Medicine
DX: E87.6 Hypokalemia (principal); D50.9 Iron deficiency anemia, unspecified
CPT/HCPCS: 36415; 36430; 80053; 85025; 86850; 86900; 86901; 86920; 93005; 96360; 99283; A9270; J7040; P9016

== ENCOUNTER 2023-04-04 17:14 | Outpatient (CLI) | payer BC, SELFPAY ==
[2023-04-04] MEDS: IRON SUCROSE COMPLEX 200 MG in SODIUM CHLORIDE 0.9% IV 250 ML 250 MG IVPB (17:32)
--- NOTE | 2023-04-04 17:36 | PC.NURSE ---
Keshia Juarez RN started 22 gauge IV in left wrist. IV medication started without difficulty. Call light and belongings within reach.
--- NOTE | 2023-04-04 18:43 | PC.NURSE ---
IV infusion completed. IV flushed and removed without difficulty. IV line intact. Pressure applied to site then pressure dressing applied. Patient tolerated well. Site care instructed. Patient ambulated to car.
== END 2023-04-04 17:15 | disposition home or self-care (01) ==
PROVIDERS: PCP Family Medicine; Visit Provider Family Medicine
DX: D50.9 Iron deficiency anemia, unspecified (principal)
CPT/HCPCS: 96365; J1756; J7050

== ENCOUNTER 2023-04-07 17:25 | Outpatient (CLI) | payer BC, SELFPAY ==
[2023-04-07] MEDS: IRON SUCROSE COMPLEX 200 MG in SODIUM CHLORIDE 0.9% IV 250 ML 250 MG IVPB (17:46)
[2023-04-07 18:06] VITALS: BP 112/74; PULSE 94; RESP 18; TEMP 36.1; O2SAT 98
== END 2023-04-07 17:26 | disposition home or self-care (01) ==
LOC: CHSTREATRM 17:26
PROVIDERS: PCP Family Medicine; Visit Provider Family Medicine
DX: D50.9 Iron deficiency anemia, unspecified (principal)
CPT/HCPCS: 96365; J1756; J7050

== ENCOUNTER 2023-04-11 17:12 | Outpatient (CLI) | payer BC, SELFPAY ==
[2023-04-11] MEDS: IRON SUCROSE COMPLEX 200 MG in SODIUM CHLORIDE 0.9% IV 250 ML 250 MG IVPB (18:05)
--- NOTE | 2023-04-11 19:12 | PC.NURSE ---
Patient IV infusion completed. Patient tolerated well.IV site discontinued. Instructed on site care. Patient stated understanding. Patient amb to vehicile.
== END 2023-04-11 17:13 | disposition home or self-care (01) ==
LOC: CHSTREATRM 17:13
PROVIDERS: PCP Family Medicine; Visit Provider Family Medicine
DX: D50.9 Iron deficiency anemia, unspecified (principal)
CPT/HCPCS: 96365; J1756; J7050

== ENCOUNTER 2023-04-14 13:45 | Outpatient (CLI) | payer BC, SELFPAY ==
[2023-04-14 14:04] VITALS: BMI 40.7
[2023-04-14 14:17] VITALS: BP 109/53; PULSE 70; RESP 18; TEMP 36.2; O2SAT 97
[2023-04-14] MEDS: IRON SUCROSE COMPLEX 200 MG in SODIUM CHLORIDE 0.9% IV 250 ML 250 MG IVPB (14:31)
--- NOTE | 2023-04-14 16:07 | PC.NURSE ---
Patient infusion completed. IV discontinued and and pressure dressing applied. Patient tolerated well. Nurse explained care of IV site. Patient amb to vehicle,.
== END 2023-04-14 13:46 | disposition home or self-care (01) ==
LOC: CHSTREATRM 13:48
PROVIDERS: PCP Family Medicine; Visit Provider Family Medicine
DX: D50.9 Iron deficiency anemia, unspecified (principal)
CPT/HCPCS: 96365; J1756; J7050

== ENCOUNTER 2023-04-19 17:48 | Outpatient (CLI) | payer BC, SELFPAY ==
[2023-04-19] MEDS: IRON SUCROSE COMPLEX 200 MG in SODIUM CHLORIDE 0.9% IV 250 ML 250 MG IVPB (18:25)
--- NOTE | 2023-04-19 19:05 | PC.NURSE ---
Patient went to ER for IV insertion. 22g IV inserted to right hand. Patient came up to floor and IV infusion started. Patient tolerated well. Call light in reach.
--- NOTE | 2023-04-19 19:32 | PC.NURSE ---
Patient's IV infufion completed. IV D/Cs intact. Patient tolerated well. Patient ambulated to car.
== END 2023-04-19 17:49 | disposition home or self-care (01) ==
LOC: CHSTREATRM 17:50
PROVIDERS: PCP Family Medicine; Visit Provider Family Medicine
DX: D50.9 Iron deficiency anemia, unspecified (principal)
CPT/HCPCS: 96365; J1756; J7050

== ENCOUNTER 2023-04-27 18:12 | Outpatient (CLI) | payer BC, SELFPAY ==
[2023-04-27 18:37] LABS: Basophils Absolute Auto 0.06 K/mm3 (0.00-0.10); Basophils Percent Auto 0.5 % (0.0-1.0); Eosinophils Absolute Auto 0.15 K/mm3 (0.02-0.50); Eosinophils Percent Auto 1.3 % (1.0-6.0); Hematocrit 36.8 % (35.0-49.0); Hemoglobin 10.4 g/dL (12.0-15.0); Immature Granulocyte Absolute 0.02 K/mm3 (0.00-0.00); Immature Granulocyte Percent A 0.2 % (0.0-0.0); Lymphocytes Absolute Auto 6.23 K/mm3 (1.10-4.50); Lymphocytes Percent Auto 55.2 % (18.0-42.0); Mean Corpuscular HGB Conc 28.3 g/dL (32.0-36.0); Mean Corpuscular Hemoglobin 21.4 pg (27.0-31.0); Mean Corpuscular Volume 75.9 fL (78.0-102.0); Mean Platelet Volume 9.3 fl (9.2-11.8); Monocytes Absolute Auto 0.58 K/mm3 (0.10-0.90); Monocytes Percent Auto 5.1 % (2.0-11.0); Neutrophils Absolute Auto 4.2 K/mm3 (1.7-7.2); Neutrophils Percent Auto 37.7 % (50.0-70.0); Platelet Count Result 331 K/mm3 (150-420); Red Blood Count 4.85 M/mm3 (4.20-5.40); White Blood Count 11.3 K/mm3 (4.8-10.8)
[2023-04-27 19:33] LABS: Alanine Aminotransferase 22 U/L (14-59); Albumin Level 3.8 g/dL (3.4-5.0); Alkaline Phosphatase 84 U/L (46-116); Anion Gap 8 mmol/L (8-16); Aspartate Amino Transferase 15 U/L (15-37); Bilirubin,Total 0.3 mg/dL (0.00-1.00); Blood Urea Nitrogen 12 mg/dL (7-18); Carbon Dioxide 30 mmol/L (21-32); Chloride 107 mmol/L (98-108); Estimated Glomerular Filt Rate 47; Ferritin 60 ng/mL (8-252); Glucose 81 mg/dL (70-99); Iron 41 ug/dL (50-170); Osmolality Calculated 298 mOsm/kg (285-295); Percent Iron Saturation 11 % (12-57); Potassium 4.3 mmol/L (3.5-5.1); Sodium 145 mmol/L (136-145); Total Protein 6.5 g/dL (6.4-8.2)
== END 2023-04-27 18:13 | disposition home or self-care (01) ==
LOC: CHSLAB 18:14
PROVIDERS: PCP Family Medicine; Visit Provider Family Medicine
DX: D50.9 Iron deficiency anemia, unspecified (principal); D72.820 Lymphocytosis (symptomatic)
CPT/HCPCS: 36415; 80053; 82728; 83540; 83550; 85025

== ENCOUNTER 2023-04-28 07:29 | Outpatient (CLI) | payer BC, SELFPAY ==
--- NOTE | ~2023-04-28 | MM_ITS ---
EXAMINATION: MM screening baldemar BI w jaz HISTORY: Screening mammogram TECHNIQUE: Craniocaudal and mediolateral oblique 3-D tomosynthesis images were obtained and synthetic 2-D images were generated. CAD analysis was submitted and interpreted. COMPARISON: 04/21/2017 BREAST PARENCHYMAL COMPOSITION: The breasts are almost entirely fatty. FINDINGS: No suspicious mass, calcification, or architectural distortion are identified in either cinda ast to suggest malignancy. There has been no suspicious interval change. IMPRESSION: 1. No mammographic evidence of malignancy. 2. Recommend routine screening mammography in one year. BI-RADS Category 1: Negative Reviewed, dictated and finalized at location A. [facility]
== END 2023-04-28 07:30 | disposition home or self-care (01) ==
LOC: CHSIMG 07:30
PROVIDERS: PCP Family Medicine; Visit Provider Family Medicine
DX: Z12.31 Encounter for screening mammogram for malignant neoplasm of breast (principal)
CPT/HCPCS: 77063; 77067

== ENCOUNTER 2024-02-15 03:30 | Day surgery (SDC) | payer BC, SELFPAY ==
[2024-02-15] VITALS (14 sets, daily range): BP systolic 101–176; BP diastolic 60–87; PULSE 53–74; RESP 14–22; TEMP 36.2–36.8; O2SAT 94–100
--- NOTE | ~2024-02-15 | XR_ITS ---
INTRAOPERATIVE FLUOROSCOPY: CLINICAL HISTORY: 53 years old Female; LEFT SIDE, CYSTO, RETRO, STENT PROCEDURE COMMENTS: Limited intraoperative fluoroscopy of the abdomen and pelvis was performed. CUMULATIVE DOSE: 28.55 mGy FLUOROSCOPY TIME: 59.5 seconds FINDINGS/IMPRESSION: Please refer to operative note for further details. Reviewed, dictated and finalized at location A.
--- NOTE | ~2024-02-15 | CT_ITS ---
EXAMINATION: CT abdomen pelvis w con DATE: 02/15/2024 05:07 INDICATION: Abdominal pain. TECHNIQUE: Computed tomography (CT) of the abdomen and pelvis was performed with 100 mL Omnipaque 350 intravenous contrast. Automated exposure control and iterative reconstruction technique were employe d. The dose-length product was 1284.26 mGy-cm. COMPARISON: CT abdomen and pelvis 12/06/2019 FINDINGS: The visualized portions of the lung bases demonstrate mild atelectasis. Calcified right chris g nodules and calcified right hilar and mediastinal lymph nodes are consistent with old granulomatous disease. No pleural effusion. The heart size is normal. No pericardial effusion. The liver is normal . The gallbladder is distended. The spleen, pancreas, and right adrenal gland are normal. There is a 2.2 cm mass in left adrenal gland that measured low attenuation on the prior noncontrast CT, consiste nt with an adenoma. Right kidney is normal. There is a delayed left-sided contrast nephrogram. There is a 3 mm stone in left kidney. There is mild left hydronephrosis and hydroureter. There is a [address] one in distal left ureter. There are surgical changes of the bowel. There are changes of gastric bypa ss procedure. The appendix is normal. There are no pathologically enlarged lymph nodes. There is phys iologic fluid in the pelvis. There are chronic bilateral L5 pars defects. There is 9 mm anterolisthes is of L5 on S1. IMPRESSION: 1. 9 mm stone in distal left ureter with mild left hydronephrosis and hydroureter. 2. 3 mm nonobstructing left kidney stone. 3. Gallbladder distention, which may be secondary to fasting. Reviewed, dictated and finalized at location A. IMPRESSION: 1. 9 mm stone in distal left ureter with mild left hydronephrosis and hydrouret er. 2. 3 mm nonobstructing left kidney stone. 3. Gallbladder distention, which may be secondary to fasting.
[2024-02-15 03:52] LABS: BEDSIDEPREGUCG Negative (Negative)
[2024-02-15 03:57] LABS: Hematocrit 36.4 % (37.0-47.0); Hemoglobin 11.5 g/dL (12.0-15.0); Mean Corpuscular HGB Conc 31.6 g/dl (32-36); Mean Corpuscular Hemoglobin 27.4 pg (26-34); Mean Corpuscular Volume 86.9 fl (80-100); Mean Platelet Volume 10.5 fl (7.4-10.4); Platelet Count Result 257 k/mm3 (150-375); Red Blood Count 4.19 M/mm3 (4.2-5.4); Red Cell Distribution Width 14.6 % (11.5-14.5); White Blood Count 13.5 K/mm3 (4.5-10.0)
[2024-02-15 04:07] LABS: Add Urine Microscopic? YES; Appearance Urine Clear (Clear); Bacteria Urine None Seen /hpf; Bilirubin Urine Negative (Negative); Blood Urine Negative (Negative); Color Urine Yellow (Yellow); Glucose Urine UA Negative (Negative); Ketones Urine Negative (Negative); Leukocyte Esterase Ur Trace LEU/UL (Negative); Nitrate Urine Negative (Negative); Non Pathogenic Casts 0-2; Protein Urine Trace mg/dL (Negative); RBC Urine 0-2 /hpf (0-2); Specific Grav Ur 1.022 (1.001-1.035); Squamous Epithelial Cell Urine Occasional /hpf (Few); Urobilinogen Urine 0.2 mg/dL (<2.0); pH Urine 5.5 (5.0-9.0)
[2024-02-15 04:09] LABS: Alanine Aminotransferase 22 U/L (6-35); Albumin Level 4.3 g/dL (3.5-5.1); Alkaline Phosphatase 82 U/L (38-126); Anion Gap 9 mmol/L (4-12); Aspartate Amino Transferase 31 U/L (14-36); Bilirubin,Total 0.5 mg/dL (0.2-1.3); Blood Urea Nitrogen 13 mg/dL (7-17); Calcium 9.2 mg/dL (8.4-10.2); Carbon Dioxide 25 mmol/L (22-30); Chloride 106 mmol/L (98-107); Estimated CRCL calculation 105 ml/min; Estimated Glomerular Filt Rate > 60; Glucose 114 mg/dL (65-110); Lipase 73 U/L (23-300); Potassium 2.9 mmol/L (3.4-5.0); Sodium 140 mmol/L (137-145)
[2024-02-15] MEDS: ONDANSETRON INJ 4 MG/2 ML VIAL IV PUSH (04:16)
[2024-02-15] MEDS: POTASSIUM CHLORIDE 20 MEQ ER TABLET 40 MEQ PO (04:16)
[2024-02-15] MEDS: MORPHINE SULFATE (*CRX) 4 MG/ML INJ IV PUSH (04:16)
[2024-02-15 04:23] LABS: Band Neutrophils Percent 1 % (0-6); Eosinophils Absolute Manual 0.27 K/mm3 (0.02-0.50); Eosinophils Percent Manual 2 % (0-4); Lymphocytes Absolute Manual 6.48 K/mm3 (1.1-4.5); Lymphocytes Percent Manual 48 % (18-44); Monocytes Absolute Manual 0.67 K/mm3 (0.1-0.90); Monocytes Percent Manual 5 % (3-9); Neutrophils Absolute Manual 6.07 K/mm3 (1.7-7.2); Neutrophils Percent Manual 44 % (46-73); Platelet Estimate Adequate (Adequate); Total Cells Counted 100
[2024-02-15 04:24] LABS: Large Platelets Present; Ovalocytes 1+; Schistocytes None Seen; Smudge Cells PRESENT
--- NOTE | 2024-02-15 04:34 | PC.NURSE ---
Pt Sa02 77%, pt alert sleepy. Oxygen 2L applied NC Sa02 increased 97%
[2024-02-15] MEDS: KETOROLAC 15 MG/ML VIAL (*BKC) IV PUSH (04:44)
[2024-02-15] MEDS: diphenhydrAMINE HCl INJ 50 MG/ML VIAL 25 MG IV PUSH (04:44)
[2024-02-15] MEDS: METOCLOPRAMIDE HCL INJ 10 MG/2 ML VIAL IV PUSH (04:45)
--- NOTE | 2024-02-15 06:15 | ED_ITS ---
HPI - Abdominal Pain General Chief Complaint: Abdominal Pain Stated Complaint: kidney stone pain Time Seen by Provider: 02/15/24 03:38 History of Present Illness HPI narrative: Patient is a 53-year-old female who presents to the emergency department this morning complaining of severe left-sided flank pain starting approximately 1 hour prior to arrival which woke her up from sleep. Patient states that she has a history of kidney stones and this feels very similar. She is in a lot of distress, and admits that she is also nauseous secondary to the pain. Patient also states that she has been having some urinary urgency which she normally does when she is trying to pass a kidney stone. Denies any fevers or chills at home. Denies any dysuria or hematuria. Denies any constipation, diarrhea, melena or hematochezia. No additional symptoms or concerns at this time. Related Data Home Medications Medication Instructions Recorded Confirmed ergocalciferol (vitamin D2) 1,250 1,250 mcg PO WEEKLY 04/07/23 04/19/23 mcg (50,000 unit) capsule Allergies Allergy/AdvReac Type Severity Reaction Status Date / Time No Known Allergies Allergy Verified 02/15/24 03:50 Review of Systems Review of Systems: All systems are reviewed and are negative unless stated otherwise in the HPI. [facility] Past Medical History Medical History (Updated 02/15/24 @ 06:39 by Max Koch MD) Condyloma Dyspareunia H/O reduction of nasal fracture age 14 Surgical History Surgical History H/O gastric bypass July 2017 History of dilation and curettage 2000 History of hysterectomy with left salpingo-oophorectomy History of right salpingo-oophorectomy Family History Family History Father Prostate carcinoma Mother Uterine cancer Social History Social History Social History: Patient drinks 1 alcoholic beverage a month. She has never smoked marijuana, cigarettes, and does not do drugs. 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 If she is unable to make decisions for herself she appoints her father Desmond Chapman to do so for her. Smoking status: Never smoker Alcohol intake: current Substance use: never Substance use type: does not use Living arrangements: with family Gender identity (if verbalized by the patient): Female Spiritual care concerns: No Exam Narrative: General: Alert, awake, afebrile, in severe distress. HEENT: PERRL, no rhinorrhea, no post nasal drip, oropharynx clear. Cardiovascular: Regular rate and rhythm, no murmurs, rubs or gallops, no peripheral edema. Respiratory: Clear to auscultation bilaterally, no tachypnea, no wheezing, no rhonchi, no rubs, no respiratory distress. Abdomen: Soft, nontender, nondistended, no rebound, no guarding, no peritoneal signs. Musculoskeletal: No joint swelling or deformity, normal muscle tone. Skin: No rashes or petechia, no signs of infection. Neurological: Alert and oriented to person, place, and time. Follows all commands. No focal deficits, speech is clear and fluent. Course Vital Signs Vital signs: Vital Signs Temperature 98.2 F 02/15/24 03:47 Pulse Rate 67 02/15/24 03:47 Respiratory Rate 14 02/15/24 03:47 Blood Pressure 149/75 H 02/15/24 03:47 Pulse Oximetry 100 02/15/24 03:47 Oxygen Delivery Room Air 02/15/24 03:47 Temperature 98.2 F 02/15/24 03:47 Pulse Rate 74 02/15/24 06:31 Respiratory Rate 16 02/15/24 06:31 Blood Pressure 153/71 H 02/15/24 06:31 Pulse Oximetry 100 02/15/24 06:31 Oxygen Delivery Nasal Cannula 02/15/24 04:34 Oxygen Flow Rate 2 02/15/24 04:34 MDM - Abdominal Pain MDM Narrative Medical decision making narrative: The patient was evaluated by myself in the emergency department. History is obtained from patient who is an independent historian and physical exam was performed. External medical records were reviewed at this time. IV was established and pertinent tests were ordered. Patient was administered 4 mg of IV morphine, 4 mg of IV Zofran with no improvement of her pain. 15 mg of IV Toradol, 10 mg of IV Reglan and 25 mg of IV Benadryl were administered at this time with some improvement of patient's pain. Laboratory results obtained revealing a leukocytosis of 13.5, potassium of 2.9 otherwise unremarkable. Patient was administered 40 mEq of oral potassium at this time. Magnesium level ordered at this time and is currently pending. Imaging studies obtained included CT abdomen pelvis with IV contrast which was independently interpreted by me revealin. 9 mm stone in distal left ureter with mild left hydronephrosis and hydroureter. 2. 3 mm nonobstructing left kidney stone. Findings were discussed with patient at bedside. Patient does not believe that she is going to be able to pass the stone at home since in 2019 she had to be admitted for a 5 mm stone as she was not able to pass it and states that that experience was the worst experience of her life. At this time case was discussed with the on-call hospitalist Dr. Beltre at 0710 and he accepted admission. Dr. Mckeon was paged twice but we were unsuccessful in reaching him. Formal consultation was placed under urologist Dr. De La Torre. Differential diagnosis considerations include renal colic, pyelonephritis, small-bowel obstruction pancreatitis. Comorbidities impacting this visit include history of kidney stones. I have evaluated and discussed social determinants of health with the patient that could potentially impact subsequent diagnosis and treatment plans. On repeat assessment of the patient, reevaluation revealed that the patient is doing well and is in no acute distress. Patient symptoms have improved since she arrived to our emergency department. Repeat vital signs were all reviewed and noted to be stable. Differential diagnosis and treatment plan were discussed with the patient at bedside. Patient agrees with discussion and after shared medical decision making agrees with admission. All questions were answered to the patient's satisfaction. Lab Data 02/15/24 03:46 02/15/24 03:46 Labs: Lab Results 02/15/24 02/15/24 Range/Units 03:46 03:49 WBC 13.5 H (4.5-10.0) K/mm3 RBC 4.19 L (4.2-5.4) M/mm3 Hgb 11.5 L D (12.0-15.0) g/dL Hct 36.4 L (37.0-47.0) % MCV 86.9 (80-100) fl MCH 27.4 (26-34) pg MCHC 31.6 L (32-36) g/dl RDW 14.6 H (11.5-14.5) % Plt Count 257 (150-375) k/mm3 MPV 10.5 H (7.4-10.4) fl Immature Gran % (Auto) Not Reportable Neut % (Auto) Not Reportable Lymph % (Auto) Not Reportable [place] % (Auto) Not Reportable Eos % (Auto) Not Reportable Baso % (Auto) Not Reportable Lymph # (Auto) Not Reportable [place] # (Auto) Not Reportable Eos # (Auto) Not Reportable Baso # (Auto) Not Reportable Abs Immat Gran (auto) Not Reportable Absolute Neuts (auto) Not Reportable Absolute Nucleated RBC Not Reportable Total Counted 100 Neutrophils % (Manual) 44 L (46-73) % Band Neutrophils % 1 (0-6) % Lymphocytes % (Manual) 48 H (18-44) % Monocytes % (Manual) 5 (3-9) % Eosinophils % (Manual) 2 (0-4) % Nucleated RBC % Not Reportable Abs Neuts (Manual) 6.07 (1.7-7.2) K/mm3 Abs Lymphs (Manual) 6.48 H (1.1-4.5) K/mm3 Abs Monocytes (Manual) 0.67 (0.1-0.90) K/mm3 Absolute Eos (Manual) 0.27 (0.02-0.50) K/mm3 Smudge Cells Present Platelet Estimate Adequate (Adequate) Large Platelets Present Ovalocytes 1+ Schistocytes None seen Sodium 140 (137-145) mmol/L Potassium 2.9 L (3.4-5.0) mmol/L Chloride 106 (98-107) mmol/L Carbon Dioxide 25 (22-30) mmol/L Anion Gap 9 (4-12) mmol/L BUN 13 (7-17) mg/dL Creatinine 0.60 L (0.7-1.0) mg/dL Estim Creat Clear Calc 105 ml/min Estimated GFR > 60 (59 - ) Glucose 114 H (65-110) mg/dL Calcium 9.2 (8.4-10.2) mg/dL Magnesium 1.9 (1.6-2.3) mg/dL Total Bilirubin 0.5 (0.2-1.3) mg/dL AST 31 (14-36) U/L ALT 22 (6-35) U/L Alkaline Phosphatase 82 (38-126) U/L Total Protein 7.0 (6.3-8.2) g/dL Albumin 4.3 (3.5-5.1) g/dL Lipase 73 (23-300) U/L Urine Color Yellow (Yellow) Urine Appearance Clear (Clear) Urine pH 5.5 (5.0-9.0) Ur Specific [place] 1.022 (1.001-1.035) Urine Protein Trace (Negative) mg/dL Urine Glucose (UA) Negative (Negative) mg/dL Urine Ketones Negative (Negative) mg/dL Ur Blood (Man) Negative (Negative) Urine Nitrate Negative (Negative) Urine Bilirubin Negative (Negative) Urine Urobilinogen 0.2 (<2.0) mg/dL Leukocyte Esterase Rfl Trace H (Negative) GERRI/UL Urine RBC 0-2 (0-2) /hpf Urine WBC 6-10 H (0-3) /hpf Ur Squamous Epith Cells Occasional (Few) /hpf Urine Bacteria None seen /hpf Urine Casts 0-2 POC Urine HCG, Qual Negative (Negative) Imaging Data Radiologist's impression: ITS Impressions Abdomen/Pelvis CT 02/15/24 06:00 IMPRESSION: 1. 9 mm stone in distal left ureter with mild left hydronephrosis and hydroureter. 2. 3 mm nonobstructing left kidney stone. 3. Gallbladder distention, which may be secondary to fasting. Discharge Plan Discharge Clinical Impression: Kidney stone on left side, Acute flank pain, Acute hypokalemia Patient Disposition: Still a Patient Condition: Improved Instructions: Antibiotic Form Prescriptions: No Action ergocalciferol (vitamin D2) 1,250 mcg (50,000 unit) capsule 1,250 mcg PO WEEKLY Rx Instructions: takes on Tuesday Follow-up/Referrals: Tenzin Blair DO [Primary Care Provider] -
[2024-02-15 06:57] LABS: Magnesium 1.9 mg/dL (1.6-2.3)
--- NOTE | 2024-02-15 08:39 | WPDURCON ---
Assessment and Plan Assessment and plan (1) Acute flank pain: Code(s): R10.9 - Unspecified abdominal pain Status: Acute (2) Kidney stone on left side: Code(s): N20.0 - Calculus of kidney Status: Acute (3) Ureteral calculus, left: Code(s): N20.1 - Calculus of ureter Status: Acute Plan 53-year-old female with large left distal ureteral stone. -risks, benefits, alternatives with the patient. She would like to proceed with intervention as soon as possible. We will plan for cystoscopy and left ureteral stent insertion, with potential left ureteroscopy, laser lithotripsy, stone extraction. The risks/alternatives/potential complications were discussed with the patient. She understands and had time to ask questions. She agrees to proceed Urology Consult Note HPI Date Seen: 02/15/24 Requesting Physician: Concetta De La Torre MD Primary Care Provider: Tenzin Blair DO Consult Narrative Narrative: Rachael Nielsen is a 53 year old female present to the emergency department with acute onset of left-sided flank pain. She has a history of stone disease. She denies fevers or chills. She has had nausea and vomiting. Imaging revealed a large left distal ureteral stone. [facility] Past Medical History Medical History (Updated 02/15/24 @ 06:39 by Max Koch MD) Condyloma Dyspareunia H/O reduction of nasal fracture age 14 Surgical History Surgical History H/O gastric bypass July 2017 History of dilation and curettage 1998, 2000 History of hysterectomy with left salpingo-oophorectomy History of right salpingo-oophorectomy Family History Family History Father Prostate carcinoma Mother Uterine cancer Social History Social History Social History: Patient drinks 1 alcoholic beverage a month. She has never smoked marijuana, cigarettes, and does not do drugs. 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 If she is unable to make decisions for herself she appoints her father Desmond Chapman to do so for her. Smoking status: Never smoker Alcohol intake: current Substance use: never Substance use type: does not use Living arrangements: with family Gender identity (if verbalized by the patient): Female Spiritual care concerns: No Meds Home Medications and Allergies Home Medications Medication Instructions Recorded Confirmed Type ergocalciferol (vitamin D2) 1,250 1,250 mcg PO WEEKLY 04/07/23 04/19/23 History mcg (50,000 unit) capsule Allergies Allergy/AdvReac Type Severity Reaction Status Date / Time No Known Allergies Allergy Verified 02/15/24 03:50 Vital Signs Vital Signs - 24 hr 02/15/24 03:47 02/15/24 04:17 02/15/24 04:34 Temperature 36.8 C Pulse Rate 67 70 Respiratory Rate 14 22 H Blood Pressure 149/75 H 176/87 H Pulse Oximetry 100 100 97 Oxygen Delivery Room Air Nasal Cannula Oxygen Flow Rate 2 02/15/24 06:31 02/15/24 07:00 Temperature Pulse Rate 74 70 Respiratory Rate 16 17 Blood Pressure 153/71 H 149/74 H Pulse Oximetry 100 100 Oxygen Delivery Oxygen Flow Rate Exam Narrative: Awake and alert. She is in no acute distress. She reports left-sided CVA tenderness. Breathing nonlabored. Her abdomen is soft Results Labs 02/15/24 03:46 02/15/24 03:46 Labs: Short CBC 02/15/24 Range/Units 03:46 WBC 13.5 H (4.5-10.0) K/mm3 Hgb 11.5 L D (12.0-15.0) g/dL Hct 36.4 L (37.0-47.0) % Plt Count 257 (150-375) k/mm3 BMP 02/15/24 03:46 Sodium 140 Potassium 2.9 L Chloride 106 Carbon Dioxide 25 BUN 13 Creatinine 0.60 L Glucose 114 H Calcium 9.2 Liver Function 02/15/24 Range/Units 03:46 Total Bilirubin 0.5 (0.2-1.3) mg/dL AST 31 (14-36) U/L ALT 22 (6-35) U/L Alkaline Phosphatase 82 (38-126) U/L Albumin 4.3 (3.5-5.1) g/dL Urine 02/15/24 Range/Units 03:46 Urine Color Yellow (Yellow) Urine Appearance Clear (Clear) Urine pH 5.5 (5.0-9.0) Ur Specific [place] 1.022 (1.001-1.035) Urine Protein Trace (Negative) mg/dL Urine Glucose (UA) Negative (Negative) mg/dL Ordering Physician: Max Koch MD Date of Service: 02/15/24 Procedure(s): CT abdomen pelvis w con Accession Number(s): [id number] cc: Tenzin Blair DO; Max Koch MD~ EXAMINATION: CT abdomen pelvis w con DATE: 02/15/2024 05:07 INDICATION: Abdominal pain. TECHNIQUE: Computed tomography (CT) of the abdomen and pelvis was performed with 100 mL Omnipaque 350 intravenous contrast. Automated exposure control and iterative reconstruction technique were employed. The dose-length product was 1284.26 mGy-cm. COMPARISON: CT abdomen and pelvis 12/06/2019 FINDINGS: The visualized portions of the lung bases demonstrate mild atelectasis. Calcified right lung nodules and calcified right hilar and mediastinal lymph nodes are consistent with old granulomatous disease. No pleural effusion. The heart size is normal. No pericardial effusion. The liver is normal. The gallbladder is distended. The spleen, pancreas, and right adrenal gland are normal. There is a 2.2 cm mass in left adrenal gland that measured low attenuation on the prior noncontrast CT, consistent with an adenoma. Right kidney is normal. There is a delayed left-sided contrast nephrogram. There is a 3 mm stone in left kidney. There is mild left hydronephrosis and hydroureter. There is a 9 mm stone in distal left ureter. There are surgical changes of the bowel. There are changes of gastric bypass procedure. The appendix is normal. There are no pathologically enlarged lymph nodes. There is physiologic fluid in the pelvis. There are chronic bilateral L5 pars defects. There is 9 mm anterolisthesis of L5 on S1. IMPRESSION: 1. 9 mm stone in distal left ureter with mild left hydronephrosis and hydroureter. 2. 3 mm nonobstructing left kidney stone. 3. Gallbladder distention, which may be secondary to fasting. Reviewed, dictated and finalized at location A.
--- NOTE | 2024-02-15 08:43 | WPDHPUPDATE1 ---
History and Physical Update Update Date/Time: 02/15/24 08:43 History and Physical has been reviewed, including an updated exam of the patient. There are NO changes in the patient's condition. Risks, benefits, and alternatives have been discussed and questions answered. Patient agrees to proceed with procedure.
[2024-02-15] MEDS: LACTATED RINGERS 1,000 ML 30 ML IV CONT (09:32)
--- NOTE | 2024-02-15 09:33 | WPDANESEPPF ---
Anes - Initial Pre Proc Eval Procedure: Operation Date: 02/15/24 09:30 Proposed Procedures p Cystoscopy, Left Ureteroscopy, Possible Left Retrograde Pyelogram, Possible Left Stone Extraction, Possible Left Stent Placement, Possible Holmium Laser - Concetta De La Torre MD Date/Time: 02/15/24 09:33 Surgeon: Concetta De La Torre MD Pre Op Diagnosis: kidney stone pain Patient Data Age: 53 Gender: F Height: 1.57 m Weight: 101 kg Last Vital Signs Temp 36.2 C L 02/15/24 08:52 Pulse 72 02/15/24 08:52 Resp 17 02/15/24 07:00 BP 136/75 02/15/24 08:52 Pulse Ox 100 02/15/24 08:52 O2 Del Method Nasal Cannula 02/15/24 08:52 O2 Flow Rate 2 02/15/24 08:52 Allergies Allergy/AdvReac Type Severity Reaction Status Date / Time No Known Allergies Allergy Verified 02/15/24 03:50 Home Medications Medication Instructions Recorded Confirmed Type ergocalciferol (vitamin D2) 1,250 1,250 mcg PO WEEKLY 04/07/23 04/19/23 History mcg (50,000 unit) capsule Laboratory Tests 02/15/24 02/15/24 03:46 03:49 WBC 13.5 H K/mm3 (4.5-10.0) RBC 4.19 L M/mm3 (4.2-5.4) Hgb 11.5 L D g/dL (12.0-15.0) Hct 36.4 L % (37.0-47.0) MCV 86.9 fl (80-100) MCH 27.4 pg (26-34) MCHC 31.6 L g/dl (32-36) RDW 14.6 H % (11.5-14.5) Plt Count 257 k/mm3 (150-375) MPV 10.5 H fl (7.4-10.4) Immature Gran % (Auto) Not Reportable Neut % (Auto) Not Reportable Lymph % (Auto) Not Reportable [place] % (Auto) Not Reportable Eos % (Auto) Not Reportable Baso % (Auto) Not Reportable Lymph # (Auto) Not Reportable [place] # (Auto) Not Reportable Eos # (Auto) Not Reportable Baso # (Auto) Not Reportable Abs Immat Gran (auto) Not Reportable Absolute Neuts (auto) Not Reportable Absolute Nucleated RBC Not Reportable Total Counted 100 Neutrophils % (Manual) 44 L % (46-73) Band Neutrophils % 1 % (0-6) Lymphocytes % (Manual) 48 H % (18-44) Monocytes % (Manual) 5 % (3-9) Eosinophils % (Manual) 2 % (0-4) Nucleated RBC % Not Reportable Abs Neuts (Manual) 6.07 K/mm3 (1.7-7.2) Abs Lymphs (Manual) 6.48 H K/mm3 (1.1-4.5) Abs Monocytes (Manual) 0.67 K/mm3 (0.1-0.90) Absolute Eos (Manual) 0.27 K/mm3 (0.02-0.50) Smudge Cells Present Platelet Estimate Adequate (Adequate) Large Platelets Present Ovalocytes 1+ Schistocytes None seen Sodium 140 mmol/L (137-145) Potassium 2.9 L mmol/L (3.4-5.0) Chloride 106 mmol/L (98-107) Carbon Dioxide 25 mmol/L (22-30) Anion Gap 9 mmol/L (4-12) BUN 13 mg/dL (7-17) Creatinine 0.60 L mg/dL (0.7-1.0) Estim Creat Clear Calc 105 ml/min Estimated GFR > 60 (59 - ) Glucose 114 H mg/dL (65-110) Calcium 9.2 mg/dL (8.4-10.2) Magnesium 1.9 mg/dL (1.6-2.3) Total Bilirubin 0.5 mg/dL (0.2-1.3) AST 31 U/L (14-36) ALT 22 U/L (6-35) Alkaline Phosphatase 82 U/L (38-126) Total Protein 7.0 g/dL (6.3-8.2) Albumin 4.3 g/dL (3.5-5.1) Lipase 73 U/L (23-300) Urine Color Yellow (Yellow) Urine Appearance Clear (Clear) Urine pH 5.5 (5.0-9.0) Ur Specific [place] 1.022 (1.001-1.035) Urine Protein Trace mg/dL (Negative) Urine Glucose (UA) Negative mg/dL (Negative) Urine Ketones Negative mg/dL (Negative) Ur Blood (Man) Negative (Negative) Urine Nitrate Negative (Negative) Urine Bilirubin Negative (Negative) Urine Urobilinogen 0.2 mg/dL (<2.0) Leukocyte Esterase Rfl Trace H GERRI/UL (Negative) Urine RBC 0-2 /hpf (0-2) Urine WBC 6-10 H /hpf (0-3) Ur Squamous Epith Cells Occasional /hpf (Few) Urine Bacteria None seen /hpf Urine Casts 0-2 POC Urine HCG, Qual Negative (Negative) Patient hx anesthesia problems: none Family hx anesthesia problems: none Results Review: All pre-operative results and documents have been reviewed as part of the pre-operative evaluation. [facility] Past Medical History Medical History Condyloma Dyspareunia H/O reduction of nasal fracture age 14 Surgical History Surgical History H/O gastric bypass July 2017 History of dilation and curettage 1998, 2000 History of hysterectomy with left salpingo-oophorectomy History of right salpingo-oophorectomy Family History Family History Father Prostate carcinoma Mother Uterine cancer Social History Social History Social History: Patient drinks 1 alcoholic beverage a month. She has never smoked marijuana, cigarettes, and does not do drugs. 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 If she is unable to make decisions for herself she appoints her father Desmond Chapman to do so for her. Smoking status: Never smoker Alcohol intake: current Substance use: never Substance use type: does not use Living arrangements: with family Gender identity (if verbalized by the patient): Female Spiritual care concerns: No Anes - Eval Final PreProcedure Day of Procedure 02/15/24 09:33 Patient weight: morbidly obese Heart: regular rate and rhythm Lungs: clear to auscultation Airway: Mallampati scale class II Neurological: alert and oriented Last oral intake: >/= 8 hours ASA classification: III Emergent: no Anesthetic plan: proceed Anesthesia type and monitoring: general Results Review: All pre-operative results and documents have been reviewed as part of the pre-operative evaluation. Informed Consent: The patient's anesthetic plan and its attendant risks and benefits were discussed with the patient/family/POA. Questions were solicited and answers provided to the satisfaction of the patient/family/POA.
--- NOTE | 2024-02-15 10:49 | W.PM.PROC2 ---
Procedure Note - Detailed Date of Procedure 02/15/24 Pre-op Diagnosis Left ureteral stone, left kidney stone, hydronephrosis Post-op Diagnosis Same Procedure Performed Cystoscopy, left ureteroscopy, laser lithotripsy, retrograde pyelogram, stone extraction, ureteral stent insertion Surgeon Concetta De La Torre MD Anesthesia General Findings 9mm left distal ureteral stone -laser fragmentation and removal 3mm left renal stone -removed Retrograde pyelogram with moderate left hydronephrosis Description of Procedure Informed consent was obtained. Patient be operating. She was given preoperative IV antibiotics. She was induced anesthesia. She was prepped draped normal sterile fashion. A 20 F cystoscope was inserted through the urethra into the bladder. Within the bladder there was no mucosal abnormalities. Then cannulated the left ureteral orifice dilated with 8/10 dilator. We then advanced a semi rigid ureteroscope into the distal ureter where I encountered the stone distal ureter. Retrograde pyelogram performed and there was moderate hydroureteronephrosis down to the level of the stone. The stone was too large to be removed in 1 piece, therefore laser lithotripsy was performed to fragment the stone into multiple fragments. Fragments were then basketed with a ZeroTip basket and removed. Ureteral stone sent a specimen. Then we then inspected the length of the ureter with the rigid scope there were no residual stones or injury. I elected therefore to place a flexible ureteroscope inspecting each calyx, identifying 3mm stone in the lower pole and it was removed. We inspected each calyx and there were no significant residual stones. The length of the ureter and there was no significant residual stones. Over the wire was placed 6 F variable length stent with a curl in the renal pelvis and curl the bladder bladder was emptied lidocaine was instilled. Patient was awakened taken to room stable condition Pathology Yes Complications No immediate complications Condition Stable Disposition PACU
[2024-02-15] MEDS: oxyCODONE HCL (*CRX) 5 MG TAB IR PO (12:15)
--- NOTE | 2024-02-15 12:20 | P.HP_ITS ---
H&P: HPI History of Present Illness Date/Time: 02/15/24 12:20 Chief Complaint: Right flank pain. Narrative: This is a 53-year-old female with PMFSH Past Medical History Medical History Condyloma Dyspareunia H/O reduction of nasal fracture age 14 Surgical History Surgical History H/O gastric bypass July 2017 History of dilation and curettage 1998, 2000 History of hysterectomy with left salpingo-oophorectomy History of right salpingo-oophorectomy Family History Family History Father Prostate carcinoma Mother Uterine cancer Social History Social History Social History: Patient drinks 1 alcoholic beverage a month. She has never smoked marijuana, cigarettes, and does not do drugs. 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 If she is unable to make decisions for herself she appoints her father Desmond Chapman to do so for her. Smoking status: Never smoker Alcohol intake: current Substance use: never Substance use type: does not use Living arrangements: with family Gender identity (if verbalized by the patient): Female Spiritual care concerns: No Meds Home Medications and Allergies Home Medications Medication Instructions Recorded Confirmed Type ergocalciferol (vitamin D2) 1,250 1,250 mcg PO WEEKLY 04/07/23 04/19/23 History mcg (50,000 unit) capsule Allergies Allergy/AdvReac Type Severity Reaction Status Date / Time No Known Allergies Allergy Verified 02/15/24 03:50 Vital Signs Vital Signs - 24 hr 02/15/24 03:47 02/15/24 04:17 02/15/24 04:34 Temperature 98.2 F Pulse Rate 67 70 Respiratory Rate 14 22 H Blood Pressure 149/75 H 176/87 H Pulse Oximetry 100 100 97 Oxygen Delivery Room Air Nasal Cannula Oxygen Flow Rate 2 02/15/24 06:31 02/15/24 07:00 02/15/24 08:52 Temperature 97.1 F L Pulse Rate 74 70 72 Respiratory Rate 16 17 Blood Pressure 153/71 H 149/74 H 136/75 Pulse Oximetry 100 100 100 Oxygen Delivery Nasal Cannula Oxygen Flow Rate 2 02/15/24 10:52 02/15/24 11:05 02/15/24 11:20 Temperature 97.2 F L Pulse Rate 66 53 L 65 Respiratory Rate 18 14 14 Blood Pressure 139/77 152/74 H 162/81 H Pulse Oximetry 100 100 95 Oxygen Delivery Simple Face Mask Simple Face Mask Room Air Oxygen Flow Rate 8 8 02/15/24 11:35 02/15/24 11:42 02/15/24 11:50 Temperature Pulse Rate 55 L 60 54 L Respiratory Rate 14 16 16 Blood Pressure 159/76 H 159/76 H 101/75 Pulse Oximetry 95 94 100 Oxygen Delivery Room Air Room Air Room Air Oxygen Flow Rate 02/15/24 12:15 Temperature Pulse Rate 64 Respiratory Rate 16 Blood Pressure 135/71 Pulse Oximetry Oxygen Delivery Oxygen Flow Rate H&P: Results Labs Labs: Short CBC 02/15/24 Range/Units 03:46 WBC 13.5 H (4.5-10.0) K/mm3 Hgb 11.5 L D (12.0-15.0) g/dL Hct 36.4 L (37.0-47.0) % Plt Count 257 (150-375) k/mm3 BMP 02/15/24 03:46 Sodium 140 Potassium 2.9 L Chloride 106 Carbon Dioxide 25 BUN 13 Creatinine 0.60 L Glucose 114 H Calcium 9.2 Liver Function 02/15/24 Range/Units 03:46 Total Bilirubin 0.5 (0.2-1.3) mg/dL AST 31 (14-36) U/L ALT 22 (6-35) U/L Alkaline Phosphatase 82 (38-126) U/L Albumin 4.3 (3.5-5.1) g/dL Urine 02/15/24 Range/Units 03:46 Urine Color Yellow (Yellow) Urine Appearance Clear (Clear) Urine pH 5.5 (5.0-9.0) Ur Specific [place] 1.022 (1.001-1.035) Urine Protein Trace (Negative) mg/dL Urine Glucose (UA) Negative (Negative) mg/dL Hospitalist MIPS Advance Care Plan I have confirmed that the patient's Advanced Care Plan is present, code status is documented, or surrogate decision maker is listed in patient medical record.: Yes Medication Reconciliation I have utilized all available resources to obtain, update and review the patients current medications (includes all prescriptions, OTC, herbals, cannabis, and nutritional supplements).: Yes
== END 2024-02-15 13:00 | disposition home or self-care (01) ==
LOC: ANHED 07:54 → ANHSURGERY 07:55
PROVIDERS: Emergency Provider Emergency Medicine; PCP Family Medicine; Visit Provider Urology
PROC: (CPT 52352; principal; 2024-02-15 09:30)
DX: N13.2 Hydronephrosis with renal and ureteral calculous obstruction (principal); E66.01 Morbid (severe) obesity due to excess calories; Z68.41 Body mass index [BMI] 40.0-44.9, adult; Z98.890 Other specified postprocedural states; Z98.84 Bariatric surgery status; Z80.42 Family history of malignant neoplasm of prostate; Z80.49 Family history of malignant neoplasm of other genital organs
CPT/HCPCS: 52356; 36415; 74177; 74420; 80053; 81001; 81025; 82365; 83690; 83735; 85025; 87086; 88300; 96374; 96375; 99285; A9270; C1769; C2617; J1100; J1200; J1885; J2270; J2405; J2704; J2765; J7120; Q9966; Q9967